=== PATIENT | male | born 1940 | race Caucasian/White ===

== ENCOUNTER 2020-05-25 16:03 | Emergency (ER) | payer MEDICARE, BC ==
--- NOTE | 2020-05-25 17:34 | EDM.PDOC ---
ED HPI GENERAL MEDICAL PROBLEM - General Chief Complaint: Fever Stated Complaint: fever, headache, runny nose, cough Time Seen by Provider: 05/25/20 16:20 Source of Information: Reports: Patient History Limitations: Reports: No Limitations - History of Present Illness INITIAL COMMENTS - FREE TEXT/NARRATIVE: Pt states had fever, runny nose and dry cough since this AM Cough is better Fever has resolved No emesis Questionable loose stools No known Covid exposure Onset: Today, Sudden Duration: Hour(s):, Intermittent Location: Reports: Chest, Generalized Quality: Reports: Ache Severity: Moderate Generalized Pain Score (Numeric/FACES): 6 - Related Data Allergies Allergy/AdvReac Type Severity Reaction Status Date / Time No Known Allergies Allergy Verified 01/11/14 20:47 Home Meds: Home Meds Aspirin [Halfprin] 81 mg PO DAILY 01/11/14 [History] Cholecalciferol (Vitamin D3) [Vitamin D3] 1,000 units PO DAILY 01/11/14 [History] Ferrous Sulfate 325 mg PO Q48H 05/25/20 [History] Finasteride [Proscar] 5 mg PO DAILY 05/25/20 [History] Gabapentin [Neurontin] 900 mg PO BEDTIME 05/25/20 [History] Levothyroxine 1.5 tab PO ACBREAKFAST 05/25/20 [History] Lisinopril 5 mg PO DAILY 05/25/20 [History] Multivit with Iron,Minerals [Complete Senior] 1 each PO DAILY 05/25/20 [History] [place]-3 Fatty Acids/Fish Oil [Fish Oil 1,000 mg Capsule] 1 each PO DAILY 05/25/20 [History] Pravastatin Sodium [Pravastatin (Pravachol)] 20 mg PO BEDTIME 05/25/20 [History] Social & Family History - Tobacco Use Smoking Status *Q: Former Smoker Years of Tobacco use: 50 Packs/Tins Daily: 1 Used Tobacco, but Quit: Yes Month/Year Tobacco Last Used: 2005 - Caffeine Use Caffeine Use: Reports: Coffee - Living Situation & Occupation Living situation: Reports: , with Family Occupation: Retired ED ROS GENERAL - Review of Systems Review Of Systems: See Below Constitutional: Reports: Fever, Chills HEENT: Reports: Sinus Problem Respiratory: Reports: Cough Cardiovascular: Reports: No Symptoms GI/Abdominal: Reports: No Symptoms Musculoskeletal: Reports: Muscle Pain Skin: Reports: No Symptoms Neurological: Reports: No Symptoms Psychiatric: Reports: No Symptoms ED EXAM, GENERAL - Physical Exam Exam: See Below Exam Limited By: No Limitations General Appearance: Alert, WD/WN, No Apparent Distress Ears: Normal TMs Nose: Normal Inspection Throat/Mouth: Normal Oropharynx Neck: Supple Respiratory/Chest: Lungs Clear Cardiovascular: Regular Rate, Rhythm GI/Abdominal: Soft, Non-Tender Extremities: No Pedal Edema Neurological: Alert, Oriented Course - Vital Signs Last Recorded V/S: Last Vital Signs Temp 98.6 F 05/25/20 16:04 Pulse 82 05/25/20 16:04 Resp 20 05/25/20 16:04 BP 119/42 L 05/25/20 16:04 Pulse Ox 91 L 05/25/20 16:04 - Orders/Labs/Meds Labs: Laboratory Tests 05/25/20 05/25/20 Range/Units 16:28 16:28 WBC 11.7 H (4.0-10.2) K/uL RBC 4.48 (4.33-5.41) M/uL Hgb 13.0 L (13.1-16.8) g/dL Hct 40.5 (39.0-49.0) % MCV 90.4 (84.0-98.0) fL MCH 29.0 (28.2-33.3) pg MCHC 32.1 (31.7-36.0) g/dL RDW 14.3 H (11.2-14.1) % Plt Count 139 L (150-350) K/uL Neut % (Auto) 87.3 H (45.0-80.0) % Lymph % (Auto) 3.6 L (10.0-50.0) % [place] % (Auto) 8.9 (2.0-14.0) % Eos % (Auto) 0.1 (0.0-5.0) % Baso % (Auto) 0.1 (0.0-2.0) % Neut # (Auto) 10.25 H (1.40-7.00) K/uL Lymph # (Auto) 0.42 L (0.50-3.50) K/uL [place] # (Auto) 1.04 H (0.00-1.00) K/uL Eos # (Auto) 0.01 (0.00-0.50) K/uL Baso # (Auto) 0.01 (0.00-0.20) K/uL Sodium 139 (136-145) mmol/L Potassium 4.1 (3.5-5.1) mmol/L Chloride 104 (98-107) mmol/L Carbon Dioxide 26.1 (21.0-32.0) mmol/L BUN 26 H (7-18) mg/dL Creatinine 1.43 H (0.51-1.17) mg/dL Est Cr Clr Drug Dosing 46.08 mL/min Estimated GFR (MDRD) 48 mL/min Glucose 97 (74-106) mg/dL Calcium 8.6 (8.5-10.1) mg/dL Total Bilirubin 0.5 (0.2-1.0) mg/dL AST 22 (15-37) U/L ALT 19 (12-78) U/L Alkaline Phosphatase 49 (46-116) IU/L Total Protein 6.3 L (6.4-8.2) g/dL Albumin 3.1 L (3.4-5.0) g/dL - Re-Assessments/Exams Free Text/Narrative Re-Assessment/Exam: 05/25/20 17:32 See lab Pt declines IVF Covid pending Pt to quarantine at home til test results return To ER if worse Departure - Departure Time of Disposition: 17:35 Disposition: Home, Self-Care 01 Clinical Impression: Cough Fever Qualifiers: Fever type: unspecified Qualified Code(s): R50.9 - Fever, unspecified - Discharge Information *PRESCRIPTION DRUG MONITORING PROGRAM REVIEWED*: Not Applicable *COPY OF PRESCRIPTION DRUG MONITORING REPORT IN PATIENT [place]: Not Applicable Instructions: Fever, Adult, Cough, Adult, [id number] Referrals: PCP,None [Primary Care Provider] - Additional Instructions: Encourage fluids Tylenol or Motrin as needed Await Covid test Follow up in clinic To ER if worse Sepsis Event Note (ED) - Evaluation Sepsis Screening Result: No Definite Risk - Focused Exam Vital Signs: Vital Signs Temp Pulse Resp BP Pulse Ox 05/25/20 16:04 98.6 F 82 20 119/42 L 91 L
== END 2020-05-25 17:56 | disposition home or self-care (01) ==
LOC: LL.ED 16:03
DX: R05 Cough (principal); R50.9 Fever, unspecified; R09.89 Other specified symptoms and signs involving the circulatory and respiratory systems; Z79.82 Long term (current) use of aspirin; Z87.891 Personal history of nicotine dependence
CPT/HCPCS: 36415; 80053; 85025; 99282; 99284

== ENCOUNTER 2022-03-13 08:58 | Emergency (ER) | payer BC, MEDICARE ==
[2022-03-13] MEDS ORDERED: Sodium Chloride 0.9% 10 ML Syringe FLUSH PRN (09:24)
[2022-03-13 09:50] LABS: ANION GAP 7.8 meq/L (7-15); CHLORIDE,CL 105 mmol/L (98-107); SODIUM,NA 141 mmol/L (136-145)
[2022-03-13 09:53] LABS: ESTIMATED GFR 56 mL/min (>=60)
[2022-03-13 10:55] LABS: CORONAVIRUS COVID-19 NAA NEGATIVE (NEGATIVE)
[2022-03-13 10:56] LABS: RESPIRATORY SYNCYTIAL VIR NAA NEGATIVE (NEGATIVE)
[2022-03-13] MEDS ORDERED: Sodium Chloride 0.9% 500 ML IV SCH (11:15)
[2022-03-13] MEDS ORDERED: Iopamidol 755 Mg/ML 100 ML Bottle IVPUSH ONE (11:17)
== END 2022-03-13 16:10 ==
LOC: LL.ED 08:58
DX: R00.1 Bradycardia, unspecified (principal); E78.00 Pure hypercholesterolemia, unspecified; I11.0 Hypertensive heart disease with heart failure; I50.9 Heart failure, unspecified; J44.9 Chronic obstructive pulmonary disease, unspecified; E03.9 Hypothyroidism, unspecified; E66.9 Obesity, unspecified; Z68.30 Body mass index [BMI] 30.0-30.9, adult; Z79.82 Long term (current) use of aspirin; Z79.899 Other long term (current) drug therapy; Z87.891 Personal history of nicotine dependence; Z20.822 Contact with and (suspected) exposure to COVID-19
CPT/HCPCS: 0241U; 36415; 71046; 71275; 80053; 81003; 83735; 83880; 84443; 84484; 85025; 85379; 85610; 93005; 96360; 99285-25; J3490; J7040; Q9967

== ENCOUNTER 2025-02-05 13:13 | Emergency (ER) | payer MEDICARE ==
[2025-02-05 13:47] LABS: BASOPHILS ABSOLUTE AUTO 0.03 K/uL (0.00-0.20); BASOPHILS PERCENT AUTO 0.3 % (0.0-2.0); EOSINOPHILS ABSOLUTE AUTO 0.15 K/uL (0.00-0.50); EOSINOPHILS PERCENT AUTO 1.7 % (0.0-5.0); HEMOGLOBIN 7.8 g/dL (13.1-16.8); IMMATURE GRAN ABSOLUTE AUTO 0.26 10^3/uL (0.00-0.04); IMMATURE GRAN PERCENT AUTO 2.9 % (0.0-0.4); LYMPHOCYTES ABSOLUTE AUTO 0.53 K/uL (0.50-3.50); LYMPHOCYTES PERCENT AUTO 5.9 % (10.0-50.0); MEAN CORPUSCULAR HEMOGLOBIN 27.7 pg (28.2-33.3); MEAN CORPUSCULAR HGB CONC 31.7 g/dL (31.7-36.0); MEAN CORPUSCULAR VOLUME 87.2 fL (84.0-98.0); MONOCYTES PERCENT AUTO 11.2 % (2.0-14.0); NEUTROPHILS ABSOLUTE AUTO 6.98 K/uL (1.40-7.00); PLATELET COUNT,PLT 182 K/uL (150-350); RED BLOOD CELL COUNT 2.82 M/uL (4.33-5.41); RED CELL DISTRIBUTION WIDTH 19.2 % (11.2-14.1)
[2025-02-05 14:13] LABS: ALANINE AMINOTRANSFERASE,ALT 24 U/L (12-78); ALBUMIN 2.8 g/dL (3.4-5.0); ALKALINE PHOSPHATASE 46 IU/L (46-116); ANION GAP 9.8 meq/L (7-15); ASPARTATE AMNIOTRANSFERASE,AST 29 U/L (15-37); BILIRUBIN TOTAL 0.3 mg/dL (0.2-1.0); BLOOD UREA NITROGEN,BUN 70 mg/dL (7-18); CALCIUM 8.4 mg/dL (8.5-10.1); CARBON DIOXIDE,CO2 23.2 mmol/L (21.0-32.0); CHLORIDE,CL 103 mmol/L (98-107); CREATININE 1.85 mg/dL (0.51-1.17); GLUCOSE RANDOM 101 mg/dL (70-99); PROTEIN TOTAL,TP 6.6 g/dL (6.4-8.2); SODIUM,NA 136 mmol/L (136-145)
[2025-02-05 14:14] LABS: HEMATOCRIT 24.6 % (39.0-49.0)
[2025-02-05 14:15] LABS: ESTIMATED GFR 36 mL/min (>=60)
[2025-02-05 14:31] LABS: APPEARANCE,URINE SLIGHTLY CLOUDY; BILIRUBIN,URINE NEGATIVE (NEGATIVE); COLOR,URINE ORANGE; GLUCOSE,URINE NEGATIVE (NEGATIVE); KETONES,URINE NEGATIVE (NEGATIVE); LEUKOCYTE ESTERASE,URINE NEGATIVE (NEGATIVE); NITRITE,URINE NEGATIVE (NEGATIVE); OCCULT BLOOD,URINE LARGE (NEGATIVE); PH,URINE 5.5 (5.0-9.0); PROTEIN,URINE 100 mg/dL (NEGATIVE); UROBILINOGEN,URINE 0.2 E.U./dL (0.2-1.0)
[2025-02-05 14:32] LABS: BACTERIA,URINE NOT SEEN /HPF (NONE TO FEW); EPITHELIAL CELLS,URINE NOT SEEN /LPF; MUCUS,URINE NOT SEEN /LPF (NEGATIVE); RBC,URINE >100 /HPF; WBC,URINE 0-5 /HPF
[2025-02-05] MEDS: Sodium Chloride 0.9% 10 ML Syringe FLUSH ONE (15:43)
== END 2025-02-05 15:30 | disposition home or self-care (01) ==
LOC: LL.ED 13:13
DX: R31.9 Hematuria, unspecified (principal); D64.9 Anemia, unspecified; Z93.6 Other artificial openings of urinary tract status; I11.0 Hypertensive heart disease with heart failure; I50.9 Heart failure, unspecified; E78.00 Pure hypercholesterolemia, unspecified; J44.9 Chronic obstructive pulmonary disease, unspecified; E03.9 Hypothyroidism, unspecified; E66.9 Obesity, unspecified; Z79.82 Long term (current) use of aspirin; Z79.899 Other long term (current) drug therapy; Z79.890 Hormone replacement therapy
CPT/HCPCS: 36415; 80053; 81001; 83735; 85025; 99283; J1642

== ENCOUNTER 2025-05-29 21:54 | Emergency (ER) | payer OTHER ==
[2025-05-29] MEDS: Ketamine 500 mg/10 ML MDV IV STA ×2 (23:14→23:15)
[2025-05-29] MEDS: Ketamine 500 mg/10 ML MDV ONE (23:15)
== END 2025-05-29 23:58 ==
LOC: LL.ED 21:54
DX: S43.004A Unspecified dislocation of right shoulder joint, initial encounter (principal); I11.0 Hypertensive heart disease with heart failure; I50.9 Heart failure, unspecified; E78.00 Pure hypercholesterolemia, unspecified; J44.9 Chronic obstructive pulmonary disease, unspecified; E03.9 Hypothyroidism, unspecified; Z79.82 Long term (current) use of aspirin; Z79.890 Hormone replacement therapy; Z79.899 Other long term (current) drug therapy; W18.30XA Fall on same level, unspecified, initial encounter
CPT/HCPCS: 23650; 70450; 72125; 73020-RT; 73030-RT; 96374; 96376; 99152; 99285-25; J1171; J3490

== ENCOUNTER 2025-06-08 09:31 | Inpatient (IN) | payer MEDICARE ==
[2025-06-08] MEDS ORDERED: Nystatin Crm 30 GM Tube TOP PRN (15:56)
[2025-06-08] MEDS ORDERED: Loperamide 2 MG Tab PO PRN (16:58)
[2025-06-08] MEDS: Bacitracin/Neomycin/Polymyxin B Oint 0.9 GM U/D Packet TOP SCH (17:37)
[2025-06-08] MEDS: Formoterol/Mometasone 200-5 MCG 8.8 GM Inhaler INH SCH (20:40)
[2025-06-08] MEDS: SACUBITRIL PO SCH (20:42)
[2025-06-08] MEDS: VALSARTAN PO SCH (20:42)
[2025-06-08] MEDS: OCTREOTIDE ACETATE 100 MCG/ML SQ SCH (20:43)
[2025-06-09] MEDS: Cholecalciferol (Vitamin D3) 25 MCG Tab PO SCH (07:39)
[2025-06-09] MEDS: Magnesium Chloride 64 MG Tab.ER PO SCH (07:40)
[2025-06-09] MEDS: Cyanocobalamin (Vitamin B12) 1,000 MCG Tab PO SCH (07:40)
[2025-06-09] MEDS: Tiotropium Bromide 4 GM Inhalation Spray (2.5mcg/1 dose; 10 doses) INH SCH (08:15)
[2025-06-09] MEDS: Sennosides/Docusate Sodium 50-8.6 MG Tab PO SCH (13:09)
[2025-06-09] MEDS: Magnesium Hydroxide 400 MG/5 ML Susp 30 ML Cup PO ONE (17:23)
[2025-06-09] MEDS: FLU (Fluad Triv) 25-26 (65UP)/MF59C/PF 45 MCG/0.5 ML Syringe IM ONE (17:29)
[2025-06-10] MEDS: Al and Mag Hydroxide/Diphenhydramine/Lidocaine/Simethicone 237 ML Bottle PO PRN (11:22)
[2025-06-10] MEDS: Octreotide 100 MCG/ML SDV SUBCUT SCH (19:30)
[2025-06-11] MEDS: Magnesium Hydroxide 400 MG/5 ML Susp 30 ML Cup PO ONE (13:33)
[2025-06-13 18:34] LABS: MEAN PLATELET VOLUME 10.70 fL (7.00-11.50); PLATELET COUNT,PLT 201 K/uL (150-350); RED BLOOD CELL COUNT 3.49 M/uL (4.33-5.41); RED CELL DISTRIBUTION WIDTH 17.9 % (11.2-14.1); WHITE BLOOD CELL COUNT,WBC 7.4 K/uL (4.0-10.2)
[2025-06-13 19:04] LABS: BLOOD UREA NITROGEN,BUN 23.0 mg/dL (7-18); CARBON DIOXIDE,CO2 30.5 mmol/L (21.0-32.0); CHLORIDE,CL 106.0 mmol/L (98-107); CREATININE 1.22 mg/dL (0.51-1.17); EST CRCL DRUG DOSING (CG) 49.72 mL/min; GLUCOSE RANDOM 93.0 mg/dL (70-99); POTASSIUM,K 3.7 mmol/L (3.5-5.1); SODIUM,NA 145.0 mmol/L (136-145)
[2025-06-13 19:07] LABS: APPEARANCE,URINE CLEAR; GLUCOSE,URINE NEGATIVE (NEGATIVE); OCCULT BLOOD,URINE TRACE-INTACT (NEGATIVE)
[2025-06-13 19:09] LABS: ESTIMATED GFR 59.0 mL/min (>=60)
[2025-06-13 19:41] LABS: SQUAMOUS EPITHELIAL CELLS,UR NOT SEEN /HPF (NOT SEEN)
[2025-06-15 08:02] LABS: BASOPHILS ABSOLUTE AUTO 0.02 K/uL (0.00-0.20); BASOPHILS PERCENT AUTO 0.3 % (0.0-2.0); EOSINOPHILS ABSOLUTE AUTO 0.18 K/uL (0.00-0.50); EOSINOPHILS PERCENT AUTO 3.1 % (0.0-5.0); IMMATURE GRAN ABSOLUTE AUTO 0.03 10^3/uL (0.00-0.04); IMMATURE GRAN PERCENT AUTO 0.5 % (0.0-0.4); LYMPHOCYTES ABSOLUTE AUTO 0.53 K/uL (0.50-3.50); LYMPHOCYTES PERCENT AUTO 9.1 % (10.0-50.0); MONOCYTES ABSOLUTE AUTO 0.52 K/uL (0.00-1.00); MONOCYTES PERCENT AUTO 8.9 % (2.0-14.0); NEUTROPHILS ABSOLUTE AUTO 4.55 K/uL (1.40-7.00); NEUTROPHILS PERCENT AUTO 78.1 % (45.0-80.0); PLATELET COUNT,PLT 154 K/uL (150-350); RED BLOOD CELL COUNT 3.20 M/uL (4.33-5.41); RED CELL DISTRIBUTION WIDTH 17.8 % (11.2-14.1); WHITE BLOOD CELL COUNT,WBC 5.8 K/uL (4.0-10.2)
[2025-06-15 08:20] LABS: ALANINE AMINOTRANSFERASE,ALT 17.0 U/L (12-78); ASPARTATE AMNIOTRANSFERASE,AST 27.0 U/L (15-37); BILIRUBIN TOTAL 0.7 mg/dL (0.2-1.0); BLOOD UREA NITROGEN,BUN 20.0 mg/dL (7-18); CARBON DIOXIDE,CO2 26.2 mmol/L (21.0-32.0); CHLORIDE,CL 109.0 mmol/L (98-107); CREATININE 1.14 mg/dL (0.51-1.17); EST CRCL DRUG DOSING (CG) 53.21 mL/min; GLUCOSE RANDOM 96.0 mg/dL (70-99); POTASSIUM,K 3.7 mmol/L (3.5-5.1); PROTEIN TOTAL,TP 6.2 g/dL (6.4-8.2); SODIUM,NA 144.0 mmol/L (136-145)
[2025-06-15 08:25] LABS: ESTIMATED GFR 64.0 mL/min (>=60)
== END 2025-06-18 13:05 | disposition home health service (06) | DRG 948 ==
LOC: LL.MS 14:08
PROVIDERS: ADMIT Physician Assistant; ATTEND Physician Assistant
DX: R53.81 Other malaise (principal); Z68.41 Body mass index [BMI] 40.0-44.9, adult; Z66 Do not resuscitate; J44.9 Chronic obstructive pulmonary disease, unspecified; E66.9 Obesity, unspecified; I25.10 Atherosclerotic heart disease of native coronary artery without angina pectoris; E03.9 Hypothyroidism, unspecified; M35.3 Polymyalgia rheumatica; G47.30 Sleep apnea, unspecified; I11.0 Hypertensive heart disease with heart failure; I50.9 Heart failure, unspecified; J30.9 Allergic rhinitis, unspecified; H91.90 Unspecified hearing loss, unspecified ear; E78.00 Pure hypercholesterolemia, unspecified; I73.9 Peripheral vascular disease, unspecified; N40.0 Benign prostatic hyperplasia without lower urinary tract symptoms; M19.90 Unspecified osteoarthritis, unspecified site; D64.9 Anemia, unspecified; Z85.46 Personal history of malignant neoplasm of prostate; Z90.79 Acquired absence of other genital organ(s); Z23 Encounter for immunization; Z79.899 Other long term (current) drug therapy; Z79.82 Long term (current) use of aspirin; Z87.891 Personal history of nicotine dependence; Z98.890 Other specified postprocedural states
CPT/HCPCS: 36415; 80048; 80053; 81001; 85014; 85018; 85025; 85027; 90653; 97110-GO; 97110-GP; 97140-GO; 97161-GP; 97165-GO; 97530-GO; 97530-GP; 97535-GO; A9270-GY; G0008; J2354-JB-GY